=== PATIENT | male | born 1990 | race Caucasian/White ===

== ENCOUNTER 2018-02-07 23:37 | Emergency (ER) | payer OTHER ==
[2018-02-08] MEDS ORDERED: ONDANSETRON 4 MG ODT TABDP SL ONE
--- NOTE | 2018-02-08 | ER Report ---
History and Physical Time Seen By MD: 23:52 Hx. of Stated Complaint: UPPER ABD/FLANK PAIN STARTED 1999. NAUSEA/VOMITING. NO DIARRHEA HPI/ROS Patient is a 27-year-old male presents with complaints of right upper quadrant abdominal pain. He states he has had this off and on for some time but it seems to be getting worse. He thinks his 1st time of noticing it was nearly 1-2 years ago. He states over the last few weeks he has had this a couple times and tonight he notes it's bothering him more than typical. He feels pain in right upper quadrant. It is associated with nausea and emesis by one. He did have some blood in the emesis after he threw up he noted a little bit of blood when he came to 2nd time. He notes that the pain radiates into his flank. It does not radiate down to his groin. It is not associated with urination. He has had no diarrhea or constipation. Patient notes he has seen medical evaluation for this in the past. He was told that it might be his gallbladder. He never underwent ultrasound. He states he had some blood work done that was okay and the doctor just pushed on his stomach. Patient has no local physician at this time. Patient has had no surgeries on his abdomen. He has had no fever or chills. And he notes his pain is at a tolerable level right now. REVIEW OF SYSTEMS General: He's had no fevers or chills. No change in weight. HEENT: No sore throat, ear complaints, or eye complaints Respiratory: No shortness of breath or cough Cardiac: No chest pain or palpitations GI: As above : Denies hematuria, urinary frequency or hesitancy Musculoskeletal: Negative Neuro: Negative Allergies: Coded Allergies: No Known Drug Allergies (Unverified , 02/07/18) Home Meds Active Scripts Famotidine (PEPCID) 20 Mg Tablet, 20 MG PO QDAY for 14 Days, #14 TAB Prov:DARYA TORO MD 02/08/18 Past Medical/Surgical History Patient is not followed for any ongoing medical concerns He does admit to alcohol at the equivalent of 16 pack per day He smokes cigarettes at the equivalent of one pack every 3 days He notes caffeine intake at the equivalent of 32 ounces of coffee a day Reviewed Nurses Notes: Yes Hx Smoking: Yes Hx Alcohol Use: Yes Constitutional Vital Sign - Last 24 Hours 02/07/18 02/07/18 02/08/18 02/08/18 23:42 23:45 00:00 00:15 Temp 98.1 Pulse 75 ??? 74 75 Resp 18 B/P (MAP) 147/93 146/105 (119) Pulse Ox 96 92 O2 Delivery Room Air 02/08/18 02/08/18 02/08/18 02/08/18 00:30 00:45 01:00 01:00 Pulse 71 74 88 Resp 16 B/P (MAP) 130/85 (100) Pulse Ox 93 88 94 O2 Delivery Room Air 02/08/18 02/08/18 02/08/18 01:00 01:05 01:15 Pulse 67 63 75 Resp 16 B/P (MAP) 122/78 (93) Pulse Ox 90 87 Physical Exam General Appearance: The patient is alert, has no immediate need for airway protection and no current signs of toxicity. Eyes: Pupils equal and round no injection. Respiratory: Chest is nontender. Lungs show some expiratory wheezing in the upper and lower kn[place] on the right. It is mild. There is no inspiratory wheezing noted. Left side lungs are clear. No rales or rhonchi. Cardiac: regular rate and rhythm Gastrointestinal: Abdomen is not distended. Positive bowel sounds. It is soft. He has some tenderness in the epigastrium. He does not have much objective tenderness in the right upper quadrant although subjectively that's where he notes pain. Objectively it's more epigastrium. There is no guarding. No peritoneal signs. No rebound. Musculoskeletal: Neck: Neck is supple and non tender. Extremities have full range of motion and are non tender. Skin: No rashes or lesions. DIFFERENTIAL DIAGNOSIS: After history and physical exam differential diagnosis was considered for abdominal pain: abdominal pain including but not limited to appendicitis, cholecystitis, gastritis and urinary tract infection. Medical Decision Making Data Points Result Diagram: 02/08/18 0032 02/08/18 0032 Laboratory Hematology Test 02/08/18 00:19 02/08/18 00:32 Urine Color Yellow Urine Clarity Clear Urine pH 6.0 pH (4.8-9.5) Urine Specific [place] 1.024 Urine Protein Negative mg/dL (NEGATIVE) Urine Glucose (UA) Negative mg/dL (NEGATIVE) Urine Ketones Negative mg/dL (NEGATIVE) Urine Blood Negative (NEGATIVE) Urine Nitrite Negative (NEGATIVE) Urine Bilirubin Negative (NEGATIVE) Urine Urobilinogen 4.0 mg/dL (0.2-1.9) Urine Leukocyte Esterase Negative (NEGATIVE) Urine RBC <1 /HPF (0-2/HPF) Urine WBC <1 /HPF (0-5/HPF) Urine Squamous Epithelial Cells None /LPF (</=FEW) Urine Bacteria Negative /HPF (NONE-FEW) Urine Mucus None /HPF (NONE-FEW) Red Blood Count 5.59 M/uL (4.00-5.60) Mean Corpuscular Volume 88.0 fL (80.0-96.0) Mean Corpuscular Hemoglobin 30.6 pg (26.0-33.0) Mean Corpuscular Hemoglobin Concent 34.8 g/dL (32.0-36.0) Red Cell Distribution Width 13.7 % (11.5-14.5) Mean Platelet Volume 8.3 fL (7.2-11.1) Neutrophils (%) (Auto) 46.6 % (39.4-72.5) Lymphocytes (%) (Auto) 38.8 % (17.6-49.6) Monocytes (%) (Auto) 8.5 % (4.1-12.4) Eosinophils (%) (Auto) 5.7 % (0.4-6.7) Basophils (%) (Auto) 0.4 % (0.3-1.4) Nucleated RBC Relative Count (auto) 0.1 /100WBC Neutrophils # (Auto) 3.3 K/uL (2.0-7.4) Lymphocytes # (Auto) 2.8 K/uL (1.3-3.6) Monocytes # (Auto) 0.6 K/uL (0.3-1.0) Eosinophils # (Auto) 0.4 K/uL (0.0-0.5) Basophils # (Auto) 0.0 K/uL (0.0-0.1) Nucleated RBC Absolute Count (auto) 0.01 K/uL Sodium Level 139 mmol/L (137-145) Potassium Level 3.7 mmol/L (3.5-5.0) Chloride Level 101 mmol/L (98-107) Carbon Dioxide Level 27 mmol/L (22-30) Blood Urea Nitrogen 20 mg/dl (9-21) Creatinine 1.00 mg/dl (0.66-1.25) Glomerular Filtration Rate Calc > 60.0 Random Glucose 111 mg/dl (75-110) Calcium Level 9.0 mg/dl (8.4-10.2) Total Bilirubin 0.4 mg/dl (0.2-1.3) Aspartate Amino Transf (AST/SGOT) 38 U/L (0-35) Alanine Aminotransferase (ALT/SGPT) 73 U/L (0-56) Alkaline Phosphatase 59 U/L (0-126) Total Protein 6.7 gm/dl (6.3-8.2) Albumin 3.9 g/dl (3.5-5.0) Lipase 181 U/L (23-300) Chemistry Test 02/08/18 00:19 02/08/18 00:32 Urine Color Yellow Urine Clarity Clear Urine pH 6.0 pH (4.8-9.5) Urine Specific [place] 1.024 Urine Protein Negative mg/dL (NEGATIVE) Urine Glucose (UA) Negative mg/dL (NEGATIVE) Urine Ketones Negative mg/dL (NEGATIVE) Urine Blood Negative (NEGATIVE) Urine Nitrite Negative (NEGATIVE) Urine Bilirubin Negative (NEGATIVE) Urine Urobilinogen 4.0 mg/dL (0.2-1.9) Urine Leukocyte Esterase Negative (NEGATIVE) Urine RBC <1 /HPF (0-2/HPF) Urine WBC <1 /HPF (0-5/HPF) Urine Squamous Epithelial Cells None /LPF (</=FEW) Urine Bacteria Negative /HPF (NONE-FEW) Urine Mucus None /HPF (NONE-FEW) White Blood Count 7.2 k/uL (4.5-11.0) Red Blood Count 5.59 M/uL (4.00-5.60) Hemoglobin 17.1 g/dL (14.0-18.0) Hematocrit 49.2 % (42.0-52.0) Mean Corpuscular Volume 88.0 fL (80.0-96.0) Mean Corpuscular Hemoglobin 30.6 pg (26.0-33.0) Mean Corpuscular Hemoglobin Concent 34.8 g/dL (32.0-36.0) Red Cell Distribution Width 13.7 % (11.5-14.5) Platelet Count 253 K/uL (150-450) Mean Platelet Volume 8.3 fL (7.2-11.1) Neutrophils (%) (Auto) 46.6 % (39.4-72.5) Lymphocytes (%) (Auto) 38.8 % (17.6-49.6) Monocytes (%) (Auto) 8.5 % (4.1-12.4) Eosinophils (%) (Auto) 5.7 % (0.4-6.7) Basophils (%) (Auto) 0.4 % (0.3-1.4) Nucleated RBC Relative Count (auto) 0.1 /100WBC Neutrophils # (Auto) 3.3 K/uL (2.0-7.4) Lymphocytes # (Auto) 2.8 K/uL (1.3-3.6) Monocytes # (Auto) 0.6 K/uL (0.3-1.0) Eosinophils # (Auto) 0.4 K/uL (0.0-0.5) Basophils # (Auto) 0.0 K/uL (0.0-0.1) Nucleated RBC Absolute Count (auto) 0.01 K/uL Glomerular Filtration Rate Calc > 60.0 Calcium Level 9.0 mg/dl (8.4-10.2) Total Bilirubin 0.4 mg/dl (0.2-1.3) Aspartate Amino Transf (AST/SGOT) 38 U/L (0-35) Alanine Aminotransferase (ALT/SGPT) 73 U/L (0-56) Alkaline Phosphatase 59 U/L (0-126) Total Protein 6.7 gm/dl (6.3-8.2) Albumin 3.9 g/dl (3.5-5.0) Lipase 181 U/L (23-300) Urinalysis Test 02/08/18 00:19 Urine Color Yellow Urine Clarity Clear Urine pH 6.0 pH (4.8-9.5) Urine Specific [place] 1.024 Urine Protein Negative mg/dL (NEGATIVE) Urine Glucose (UA) Negative mg/dL (NEGATIVE) Urine Ketones Negative mg/dL (NEGATIVE) Urine Blood Negative (NEGATIVE) Urine Nitrite Negative (NEGATIVE) Urine Bilirubin Negative (NEGATIVE) Urine Urobilinogen 4.0 mg/dL (0.2-1.9) Urine Leukocyte Esterase Negative (NEGATIVE) Urine RBC <1 /HPF (0-2/HPF) Urine WBC <1 /HPF (0-5/HPF) Urine Squamous Epithelial Cells None /LPF (</=FEW) Urine Bacteria Negative /HPF (NONE-FEW) Urine Mucus None /HPF (NONE-FEW) ED Course/Re-evaluation ED Course Patient was brought into the room and evaluated this noted above. Lab data is reviewed on the chart. There is some mild elevation in liver transaminases. No elevation in alkaline phosphatase. CBC is reassuring. UA is unremarkable. In the department I did order the patient to nebulizer because of his wheezing. Post neb, patient had no subjective change in his symptoms. He was not really short of breath preceding this but his lungs did clear. I do not think the bronchospasm is related to the abdominal discomfort. I did discuss that this may be related to his smoking or aggravated by his smoking. I offered to prescribe a meter dosed inhaler and help coordinate his follow-up. Patient was not interested in treating the wheezing at this time. I discussed with the patient that with regards to the abdominal discomfort, while cholecystitis or at least cholelithiasis is considered. There is no evidence of infection. No evidence by blood work concerning for obstruction. I think his clinical exam is unlikely as he has no palpable tenderness in the right upper quadrant. However, I did discuss the consideration of follow-up and the possible need for ultrasound if symptoms persist in the future. At this time , I do not see an indication for emergent ultrasound. I suspect, that the patient has more of a gastritis. There is no evidence of pancreatitis. He certainly has a lifestyle replete with gastric irritants like caffeine, nicotine, and alcohol. I've suggested to decrease and all of these substances. I will also place him on Prevacid. And I have encouraged him close follow-up with a referral to primary care. Re-evaluation At time of discharge, repeat examination of the abdomen shows less discomfort. He remains having a benign abdomen on exam. Subjectively he has noted improvement. He was sleeping comfortably prior to discharge. Decision to Disposition Date: February 08, 2018 Decision to Disposition Time: 01:28 Depart Departure Latest Vital Signs Vital Signs Date Time Temp Pulse Resp B/P (MAP) Pulse Ox O2 Delivery O2 Flow Rate FiO2 02/08/18 01:15 75 87 02/08/18 01:05 16 02/08/18 01:00 122/78 (93) 02/08/18 01:00 Room Air 02/07/18 23:42 98.1 Impression: Primary Impression: Abdominal pain Additional Impressions: Gastritis Elevated liver enzymes Bronchospasm Condition: Improved Disposition: HOME OR SELF-CARE Referrals: [facility] 5 Days call for appointment New Scripts Famotidine (PEPCID) 20 Mg Tablet 20 MG PO QDAY for 14 Days, #14 TAB Prov: DARYA TORO MD 02/08/18 Patient Instructions: Abdominal Pain (ED), Gastritis (ED) Additional Instructions: Problem Qualifiers Primary Impression: Abdominal pain Abdominal location: right lower quadrant Qualified Codes: R10.31 - Right lower quadrant pain Additional Impressions: Gastritis Gastritis type: unspecified gastritis Chronicity: acute Gastritis bleeding : presence of bleeding unspecified Qualified Codes: K29.00 - Acute gastritis without bleeding DARYA TORO MD February 08, 2018 00:00
[2018-02-08 00:48] LABS: PLATELET COUNT, AUTOMATED 253 K/uL (150-450)
[2018-02-08] MEDS ORDERED: ALBUTEROL 2.5 MG/0.5ML ER ONLY NEB ONE (00:55)
[2018-02-08 01:00] VITALS: BP 122/78
[2018-02-08] MEDS ORDERED: FAMO20TA28 PO (01:27)
[2018-02-08] MEDS ORDERED: FAMOTIDINE 20 MG TAB PO ONE (01:30)
== END 2018-02-08 01:44 | disposition home or self-care (01) ==
LOC: ER 23:59
DX: K29.00 Acute gastritis without bleeding (principal); R10.31 Right lower quadrant pain; R79.89 Other specified abnormal findings of blood chemistry; J98.01 Acute bronchospasm; F17.210 Nicotine dependence, cigarettes, uncomplicated
CPT/HCPCS: 36415; 81001; 83690; 85025; 94640; 99283; J7611; S0119; 82040; 82247; 82310; 82374; 82435; 82565; 82947; 84075; 84132; 84155; 84295; 84450; 84460; 84520